=== PATIENT | male | born 1955 | race Asian ===

== ENCOUNTER 2022-08-23 15:35 | Inpatient (IN) | payer MEDICAID ==
[~2022-08-23] VITALS: Ht 167.6 cm; Wt 88.5 kg
[2022-08-23 16:11] LABS: BASOPHILS % (AUTO) 1.3 % (0.0-2.0); EOSINOPHILS % (AUTO) 5.7 % (1.0-6.0); HEMATOCRIT 39.6 % (41-53); LYMPHOCYTES # (AUTO) 1.2 K/uL (1.0-4.8); LYMPHOCYTES % (AUTO) 28.2 % (22.0-44.0); MEAN CORPUSCULAR HEMOGLOBIN 28.5 pg (26.0-34.0); MEAN CORPUSCULAR HGB CONC 32.9 G/dL (31.0-37.0); MEAN CORPUSCULAR VOLUME 87 fL (80-100); MONOCYTES # (AUTO) 0.4 K/uL (0.1-1.0); NEUTROPHILS # (AUTO) 2.3 K/uL (1.8-7.7); NEUTROPHILS % (AUTO) 54.8 % (40.0-70.0); PLATELET COUNT (AUTO) 215 K/uL (150-450); RED BLOOD CELL COUNT(AUTO) 4.57 MIL/uL (4.50-5.90); RED CELL DISTRIBUTION WIDTH 14.9 % (11.5-14.5)
[2022-08-23 16:19] LABS: ANION GAP 7 mmol/L (8-16); CALCIUM, TOTAL 8.4 mg/dL (8.8-10.5); CARBON DIOXIDE 28 mmol/L (22-29); CHLORIDE 107 mmol/L (98-107); GLUCOSE,RANDOM 113 mg/dL (70-110); POTASSIUM 3.5 mmol/L (3.5-5.1); SODIUM SERUM 142 mmol/L (136-145); UREA NITROGEN, BLOOD 14 mg/dL (7-18)
[2022-08-23 16:20] LABS: GLOMERULAR FILTR. RATE CALC > 60 mL/min (>60)
[2022-08-23 16:25] LABS: ALANINE AMINOTRANSFERASE 26 U/L (12-78); ALKALINE PHOSPHATASE 57 U/L (46-116); ASPARTATE AMINOTRANSFERASE 16 U/L (15-37); BILIRUBIN,TOTAL 0.6 mg/dL (0.1-1.0); TOTAL PROTEIN, SERUM 6.7 g/dL (6.4-8.2)
[2022-08-23] MEDS ORDERED: ASPIRIN 81 MG CHEWABLE TABLET PO ONE (16:45)
[2022-08-23] MEDS ORDERED: AmLODIPine BESYLATE 5 MG TABLET PO SCH (17:00)
[2022-08-23] MEDS ORDERED: ATORVASTATIN CALCIUM 40 MG TABLET PO SCH (17:00)
[2022-08-23 17:04] LABS: COVID AG,FIA SOURCE NASOPHARYNGEAL
[2022-08-23] MEDS ORDERED: ONDANSETRON HCL 4 MG/2 ML VIAL IVP PRN (17:15)
[2022-08-23] MEDS ORDERED: ACETAMINOPHEN 325 MG TABLET PO PRN (17:15)
[2022-08-23 17:26] LABS: CHOL/HDL RATIO 5.1 (4.2-7.3); CHOLESTEROL 169 mg/dL (131-200); HDL CHOLESTEROL 33 mg/dL (40-60); LDL CHOL (CALC.) 118 mg/dL (0-130); TRIGLYCERIDES 90 mg/dL (15-150)
[2022-08-23] MEDS: ATORVASTATIN CALCIUM 40 MG TABLET PO SCH (17:27)
[2022-08-23] MEDS: AmLODIPine BESYLATE 5 MG TABLET PO SCH (17:27)
[2022-08-23] MEDS: DOCUSATE SODIUM 100 MG CAPSULE PO SCH (21:00)
[2022-08-23 21:30] VITALS: BP 156/92
[2022-08-23] MEDS ORDERED: INFLUENZA VIRUS VACCINE QVS 2022-23 (6MO+)/PF 60 MCG/0.5 ML SYRINGE IM. ONE (23:30)
[2022-08-23 23:57] VITALS: BP 153/93
[2022-08-24 03:45] VITALS: BP 161/102
[2022-08-24] MEDS: AmLODIPine BESYLATE 5 MG TABLET PO SCH (08:34)
[2022-08-24] MEDS: HEPARIN SODIUM,PORCINE 5,000 UNITS/ML VIAL SQ SCH ×3 (08:34→17:02)
[2022-08-24] MEDS: DOCUSATE SODIUM 100 MG CAPSULE PO SCH ×2 (08:35→20:41)
[2022-08-24] MEDS: ASPIRIN 81 MG CHEWABLE TABLET PO SCH (08:35)
[2022-08-24] MEDS: FAMOTIDINE 20 MG TABLET PO SCH (08:35)
[2022-08-24] MEDS: ATORVASTATIN CALCIUM 40 MG TABLET PO SCH (08:35)
[2022-08-24 10:54] VITALS: BP 174/78
[2022-08-24 12:10] VITALS: BP 161/98
[2022-08-24] MEDS ORDERED: AmLODIPine BESYLATE 5 MG TABLET PO ONE (12:15)
[2022-08-24] MEDS: LOSARTAN POTASSIUM 25 MG TABLET PO SCH ×2 (12:31→20:41)
[2022-08-24 16:09] VITALS: BP 148/91
[2022-08-24 20:27] VITALS: BP 137/89
[2022-08-24 23:41] VITALS: BP 143/89
[2022-08-25] MEDS: HEPARIN SODIUM,PORCINE 5,000 UNITS/ML VIAL SQ SCH ×3 (00:07→15:19)
[2022-08-25 03:50] VITALS: BP 164/88
[2022-08-25 07:27] VITALS: BP 139/79
[2022-08-25] MEDS: LOSARTAN POTASSIUM 25 MG TABLET PO SCH (08:50)
[2022-08-25] MEDS: DOCUSATE SODIUM 100 MG CAPSULE PO SCH (08:50)
[2022-08-25] MEDS: ATORVASTATIN CALCIUM 40 MG TABLET PO SCH (08:51)
[2022-08-25] MEDS: FAMOTIDINE 20 MG TABLET PO SCH (08:51)
[2022-08-25] MEDS: ASPIRIN 81 MG CHEWABLE TABLET PO SCH (08:51)
[2022-08-25] MEDS ORDERED: AmLODIPine BESYLATE 10 MG TABLET PO SCH (09:00)
[2022-08-25 11:05] VITALS: BP 129/62
[2022-08-25 15:16] VITALS: BP 135/92
== END 2022-08-25 19:00 | disposition home or self-care (01) | DRG 45 ==
LOC: EMS 15:41 → 5S 18:55
PROVIDERS: ADMIT Internal Medicine; ATTEND Internal Medicine
DX: I63.9 Cerebral infarction, unspecified (principal); G81.91 Hemiplegia, unspecified affecting right dominant side; E66.9 Obesity, unspecified; E78.5 Hyperlipidemia, unspecified; Z20.822 Contact with and (suspected) exposure to COVID-19; I10 Essential (primary) hypertension; Z68.31 Body mass index [BMI] 31.0-31.9, adult
CPT/HCPCS: 70450; 70551; 71045; 80053; 80061; 85025; 92610; 93005; 93306; 93880; 97112; 97116; 97162; 97165; 99285; J1644; 36415-L1; 36415-TC